=== PATIENT | female | born 1985 | race Caucasian/White ===

== ENCOUNTER 2018-07-08 04:44 | Emergency (ER) | payer OTHER ==
[2018-07-08] MEDS ORDERED: ALBUTEROL SO4 2.5/IPRATROPIUM 0.5 INH SOL 3 ML VIAL.NEB. NEB ONE ×2 (04:51→05:08)
[2018-07-08 04:56] VITALS: BMI 29.2
--- NOTE | 2018-07-08 05:11 | PDOC ---
Attending Attestation - Resident Resident Name: Kervin Almanzar - ED Attending Attestation I have performed the following: I have examined & evaluated the patient, The case was reviewed & discussed with the resident, I agree w/resident's findings & plan - HPI HPI: 07/08/18 05:31 Pt comes with asthma exacerbation and cough and cold and chest discomfort. - Physicial Exam PE: 07/08/18 05:32 Agree with resident exam. - Medical Decision Making 07/08/18 05:32 Pt agrees to have a CXR with sheilding of the baby. She will be treated with asthma meds and she will be reevaluated after the CXR. 07/08/18 19:53 Pt will be signed out to the day team.
--- NOTE | 2018-07-08 05:17 | PDOC ---
History of Present Illness - General Chief Complaint: Asthma Stated Complaint: ASTHMA Time Seen by Provider: 07/08/18 04:58 History Source: Patient Exam Limitations: No Limitations - History of Present Illness Initial Comments: 07/08/18 05:08 The patient is a 32F at 16 weeks with a PMH of asthma and Sjogren's syndrome who presents to the ER with complaints of difficulty breathing. The patient states that 3 days ago, she began feeling increased SOB with a cough and was diagnosed with RSV bronchiolitis. She was given albuterol treatments at home to use q4-6 hours but was requiring them every 45mins-1hour. She admits to sinus congestion and productive cough. She denies fever, chills, nausea, vomiting, abdominal pain, cramping, dysuria, and CP. Past History - Past Medical History Allergies/Adverse Reactions: Allergies Allergy/AdvReac Type Severity Reaction Status Date / Time ketorolac tromethamine Allergy Verified 07/08/18 04:55 [From Toradol] morphine Allergy Vomiting Verified 07/08/18 04:55 tramadol Allergy Verified 07/08/18 04:55 Home Medications: Ambulatory Orders Albuterol 0.083% Nebulizer Stella [Ventolin 0.083%] 1 neb NEB Q4H 06/29/16 Albuterol Sulfate Inhaler - [Ventolin Hfa Inhaler -] 1 - 2 inh PO QID 06/29/16 Albuterol 0.083% Nebulizer Stella [Ventolin 0.083% Nebulizer Soln -] 1 neb NEB Q4H PRN #20 vial 06/30/16 Albuterol Sulfate Inhaler - [Ventolin Hfa Inhaler -] 1 - 2 inh PO Q4H PRN #1 inhaler 06/30/16 predniSONE [Deltasone -] 40 mg PO DAILY #4 tablet 06/30/16 PrednisoLONE [Prednisolone UNIT DOSE CUPS] 45 mg NGT ONCE #5 cup 07/08/18 Asthma: Yes Cardiac Disorders: Yes (PE) - Surgical History Appendectomy: Yes (2014) - Immunization History Immunization Up to Date: Yes - Suicide/Smoking/Psychosocial Hx Smoking History: Never smoked Have you smoked in the past 12 months: No Information on smoking cessation initiated: No Hx Alcohol Use: No Drug/Substance Use Hx: No Substance Use Type: None Review of Systems - Review of Systems Able to Perform ROS?: Yes Comments:: 07/08/18 05:36 GENERAL/CONSTITUTIONAL: No fever or chills. No weakness. HEAD, EYES, EARS, NOSE AND THROAT: Positive for sinus congestion. No change in vision. No ear pain or discharge. No sore throat. CARDIOVASCULAR: No chest pain, palpitations, or lightheadedness. RESPIRATORY: Positive for cough, wheezing, and SOB. No hemoptysis. GASTROINTESTINAL: No nausea, vomiting, diarrhea, constipation, or abdominal pain. GENITOURINARY: No dysuria, frequency, hematuria, or change in urination. MUSCULOSKELETAL: No joint or muscle swelling or pain. No neck or back pain. SKIN: No rash or lesions. NEUROLOGIC: No headache, numbness, tingling, focal weakness, loss of consciousness, or change in strength/sensation. Is the patient limited Turkish proficient: No *Physical Exam - Vital Signs Last Vital Signs Temp Pulse Resp BP Pulse Ox 97.6 F 112 H 24 H 149/96 96 07/08/18 04:55 07/08/18 04:55 07/08/18 04:55 07/08/18 04:55 07/08/18 04:55 - Physical Exam Comments: 07/08/18 05:38 GENERAL: Well developed, well nourished. Awake and alert. No acute distress. HEENT: Normocephalic, atraumatic. Hearing grossly normal. Moist mucous membranes. PERRLA, EOMI. No conjunctival pallor. Sclera are non-icteric. NECK: Supple. Full ROM. No JVD. CARDIOVASCULAR: Regular rate and rhythm. No murmurs, rubs, or gallops. PULMONARY: No evidence of respiratory distress. Lungs show diffuse expiratory wheezing without decreased lung sounds or dullness. ABDOMINAL: Soft. Gravid. Non-tender. Non-distended. No rebound or guarding. MUSCULOSKELETAL: Normal range of motion at all joints. No bony deformities or tenderness. EXTREMITIES: No cyanosis. No clubbing. No edema. No calf tenderness or swelling. SKIN: Warm and dry. Normal capillary refill. No rashes. No jaundice. NEUROLOGICAL: Alert, awake, appropriate. Cranial nerves 2-12 grossly intact. Normal speech. Gait is normal without ataxia. PSYCHIATRIC: Cooperative. Good eye contact. Appropriate mood and affect. Moderate Sedation - Procedure Monitoring Vital Signs: Procedure Monitoring Vital Signs Temperature 97.6 F 07/08/18 04:55 Pulse Rate 112 H 07/08/18 04:55 Respiratory Rate 24 H 07/08/18 04:55 Blood Pressure 149/96 07/08/18 04:55 O2 Sat by Pulse Oximetry (%) 96 07/08/18 04:55 Medical Decision Making - Medical Decision Making 07/08/18 05:39 The patient is a 32F at 16 weeks who presents to the ER with known RSV and worsening cough. Concern for PNA. Pt states she will sign consent for CXR. Pt feels better s/p neb treatment. Will give steroids for possible asthma exacerbation. Steroids d/w pharmacist Moreno who recommends prednisolone. Orders placed with outpatient steroids given as well. Pending XR. 07/08/18 06:22 Pt has improvement of symptoms. Pt signed consent for for CXR. CXR pending. Pt will go home pending XR results and will send abx if XR positive. Flu negative. 07/08/18 06:30 XR negative on preliminary read. I have placed an order for a call back if the XR is positive. Pt aware. Will d/c with steroids and PCP f/u. *DC/Admit/Observation/Transfer Diagnosis at time of Disposition: RSV (acute bronchiolitis due to respiratory syncytial virus) - Discharge Dispostion Disposition: HOME Condition at time of disposition: Stable Decision to Admit order: No - Prescriptions Prescriptions: PrednisoLONE [Prednisolone UNIT DOSE CUPS] 45 mg NGT ONCE #5 cup - Referrals - Patient Instructions Printed Discharge Instructions: DI for Bronchiolitis Additional Instructions: Please follow up with your primary care physician in 2-3 days. Please return to the ER if you have any signs or symptoms of chest pain, shortness of breath, uncontrollable fever, chills, nausea, vomiting, numbness, tingling, or weakness in any part of your body, changes in vision, or slurred speech. Please take your medications as prescribed. Please return to the ER if symptoms persist, worsen, or new symptoms arise. - Post Discharge Activity
[2018-07-08] MEDS ORDERED: PrednisoLONE 15 MG/5 ML UNIT-DOSE CUP PO ONE (05:27)
[2018-07-08] MEDS ORDERED: IPRATROPIUM BR 0.02% 0.5 MG/2.5 ML VIAL.NEB. NEB ONE (05:49)
[2018-07-08] MEDS ORDERED: ALBUTEROL SO4 0.083% IH SOL 2.5 MG/3 ML VIAL.NEB. NEB ONE (05:49)
[2018-07-08 07:14] VITALS: BP 122/69; PULSE 89; TEMP 98.3
== END 2018-07-08 06:54 | disposition home or self-care (01) ==
LOC: JER 04:44
PROC: 3E0F7GC Introduction of Other Therapeutic Substance into Respiratory Tract, Via Natural or Artificial Opening (ICD-10-PCS; principal; 2018-07-08)
DX: O26.892 Other specified pregnancy related conditions, second trimester (principal); O99.512 Diseases of the respiratory system complicating pregnancy, second trimester; J21.0 Acute bronchiolitis due to respiratory syncytial virus; Z3A.16 16 weeks gestation of pregnancy
CPT/HCPCS: 71045-TC-FY; 87804; 99282-25

== ENCOUNTER 2022-03-15 00:12 | Emergency (ER) | payer OTHER ==
[2022-03-15 00:19] VITALS: BMI 29.2
[2022-03-15 01:45] LABS: EPI CELLS 11 /uL (0-25.1); HYALINE CASTS 0 /uL (0-3.1); PH,URINE 6.5 (5.0-8.0); URINE APPEARANCE CLEAR; URINE BACTERIA 39 /uL (0-1359); URINE BILIRUBIN NEGATIVE (NEGATIVE); URINE COLOR YELLOW; URINE GLUCOSE (UA) 3+ (NEGATIVE); URINE KETONE NEGATIVE (NEGATIVE); URINE LEUK ESTERASE NEGATIVE (NEGATIVE); URINE NITRITE NEGATIVE (NEGATIVE); URINE PROTEIN TRACE (NEGATIVE); URINE RBC 34 /uL (0-23.9); URINE UROBILINOGEN 0.2 mg/dL (0.2-1.0); URINE WBC 22 /uL (0-25.8)
[2022-03-15] MEDS ORDERED: ONDANSETRON 4 MG/2 ML VIAL IVPUSH ONE (03:11)
[2022-03-15] MEDS ORDERED: ONDANSETRON 4 MG/2 ML VIAL ONE (03:27)
[2022-03-15 04:11] LABS: BASO % 0.5 % (0-2.0); EOS % 7.4 % (0-4.5); HEMATOCRIT 42.2 % (32.4-45.2); HEMOGLOBIN 13.9 GM/dL (10.7-15.3); LYMPH % 25.8 % (8-40); MCH 29.8 pg (25.7-33.7); MCHC 32.9 g/dl (32.0-36.0); MEAN CELL VOLUME 90.6 fl (80-96); MEAN PLT VOLUME 9.2 fl (7.5-11.1); NEUT % 59.3 % (42.8-82.8); PLATELET COUNT 297 10^3/uL (134-434); RBC 4.66 M/mm3 (3.60-5.2); RDW 12.5 % (11.6-15.6); WHITE BLOOD COUNT 7.4 K/mm3 (4.0-10.0)
[2022-03-15 04:30] LABS: ALBUMIN 3.3 g/dl (3.4-5.0); BLOOD UREA NITROGEN 9.1 mg/dL (7-18); CALCIUM 8.2 mg/dL (8.5-10.1)
[2022-03-15 04:33] LABS: CREATININE 0.6 mg/dL (0.55-1.3)
[2022-03-15 04:35] LABS: BILIRUBIN,TOTAL 0.2 mg/dL (0.2-1); TOT PROT 6.6 g/dl (6.4-8.2)
[2022-03-15] MEDS ORDERED: ACETAMINOPHEN 325 MG TABLET (FP) PO ONE (05:21)
[2022-03-15 05:34] VITALS: BP 142/93; PULSE 81; RESP 15; TEMP 98.1
[2022-03-15] MEDS ORDERED: LIDOCAINE 5% TOPICAL PATCH TP ONE (06:16)
[2022-03-15] MEDS ORDERED: LIDOCAINE 5% TOPICAL PATCH ONE (06:21)
[2022-03-15] MEDS ORDERED: LIDOCAINE PATCH REMOVAL MC SCH (22:00)
== END 2022-03-15 06:55 | disposition left against medical advice (07) ==
LOC: JER 00:12
PROC: 3E033GC Introduction of Other Therapeutic Substance into Peripheral Vein, Percutaneous Approach (ICD-10-PCS; principal; 2022-03-15)
DX: R10.9 Unspecified abdominal pain (principal)
CPT/HCPCS: 36415; 74177-TC; 80053; 81003; 84703; 85025; 87086; 99285-25; Q9967